=== PATIENT | female | born 1975 | race Asian ===

== ENCOUNTER → 2017-05-07 | Outpatient (CLI) | payer OTHER | LOC: FIMAGING 08:46 | PROVIDERS: ATTEND Internal Medicine | DX: N83.201 Unspecified ovarian cyst, right side (principal); Z97.5 Presence of (intrauterine) contraceptive device ==

== ENCOUNTER → 2017-07-09 | Outpatient (CLI) | payer OTHER | LOC: CIMAGING 14:29 | PROVIDERS: ATTEND Physical Medicine & Rehabilitation | DX: M25.532 Pain in left wrist (principal) | CPT/HCPCS: 73110-PO ==